=== PATIENT | male | born 1950 | race Caucasian/White ===

== ENCOUNTER 2021-02-05 08:36 | Day surgery (SDC) | payer MEDICARE, BC ==
[~2021-02-05] VITALS: Ht 154.9 cm; Wt 136.8 kg
[2021-02-05] MEDS ORDERED: LOSA100T57 PO (09:48)
[2021-02-05] MEDS ORDERED: ATOR20TA66 PO (09:48)
[2021-02-05] MEDS ORDERED: EMPA1TAB PO (09:48)
[2021-02-05] MEDS ORDERED: ACET-76 PO (09:48)
[2021-02-05] MEDS ORDERED: AMLO5TAB PO (09:48)
[2021-02-05] MEDS ORDERED: BISO1TAB4 PO (09:48)
[2021-02-05] MEDS ORDERED: GLIP5TAB26 PO (09:48)
[2021-02-05] MEDS ORDERED: TEN1T PO (09:48)
[2021-02-05] MEDS ORDERED: FURO-150 PO (09:48)
[2021-02-05] MEDS ORDERED: METO100T7 PO (09:48)
[2021-02-05] MEDS ORDERED: [UNRECOGNIZED DRUG - OTHER] PO (09:50)
[2021-02-05] MEDS ORDERED: ASPI-1265 PO (09:50)
[2021-02-05] MEDS ORDERED: CAL MAG PO (09:50)
[2021-02-05] MEDS ORDERED: MULTI PO (09:50)
[2021-02-05] MEDS: sodium bicarbonate (8.4%) inj. 75 ML in dextrose 5% water 500ml 500 ML IV SCH (09:55)
[2021-02-05 10:05] VITALS: BP 213/91
[2021-02-05] MEDS ORDERED: iohexol 350MG/ML 100ml bottle IV ONE (11:24)
[2021-02-05 15:30] VITALS: BP 192/86
== END 2021-02-05 15:35 | disposition home or self-care (01) ==
LOC: SSTAY O 08:36 → EDSTATUS 10:00 → SSTAY O 15:35
PROVIDERS: ATTEND Internal Medicine Cardiovascular Disease
DX: R10.84 Generalized abdominal pain (principal); I70.0 Atherosclerosis of aorta; I34.8 Other nonrheumatic mitral valve disorders; K44.9 Diaphragmatic hernia without obstruction or gangrene; N40.0 Benign prostatic hyperplasia without lower urinary tract symptoms; K40.20 Bilateral inguinal hernia, without obstruction or gangrene, not specified as recurrent; K42.9 Umbilical hernia without obstruction or gangrene; E11.22 Type 2 diabetes mellitus with diabetic chronic kidney disease; I12.9 Hypertensive chronic kidney disease with stage 1 through stage 4 chronic kidney disease, or unspecified chronic kidney disease; N18.30 Chronic kidney disease, stage 3 unspecified; I25.10 Atherosclerotic heart disease of native coronary artery without angina pectoris; D45 Polycythemia vera; E78.00 Pure hypercholesterolemia, unspecified; Z95.5 Presence of coronary angioplasty implant and graft; Z98.890 Other specified postprocedural states; Z79.899 Other long term (current) drug therapy; Z79.84 Long term (current) use of oral hypoglycemic drugs; Z79.82 Long term (current) use of aspirin
CPT/HCPCS: 74174; 82948; Q9967